=== PATIENT | male | born 1990 | race Caucasian/White ===

== ENCOUNTER 2019-05-28 20:51 | Emergency (ER) | payer SELFPAY ==
--- NOTE | 2019-05-28 21:25 | NUR ---
called pt x 3, no answer
--- NOTE | 2019-05-28 21:25 | NUR ---
Patient left without being seen. No further treatment provided. ER MD aware
== END 2019-05-28 21:25 | disposition left against medical advice (07) ==
LOC: SED 20:51
DX: R21 Rash and other nonspecific skin eruption (principal); Z53.21 Procedure and treatment not carried out due to patient leaving prior to being seen by health care provider